=== PATIENT | male | born 1955 | race Caucasian/White ===

== ENCOUNTER 2018-08-02 14:55 | Emergency (ER) | payer OTHER ==
[2018-08-02 15:01] VITALS: BMI 36.0
--- NOTE | 2018-08-02 15:03 | PDOC ---
Rapid Medical Evaluation Chief Complaint: Pain Time Seen by Provider: 08/02/18 14:58 Medical Evaluation: 08/02/18 14:59 I have performed a brief in person evaluation of the patient. The patient presents with a CC of: "I believe I have a hernia." Pt is a 62 YO male who states "I think I have a hernia." Pt admits to nausea, no vomiting. Admits to regular BM. PE: Lungs: Clear Heart: RRR Abdomen: Pt has pain upon palpation to the epigastric area. MS: Moves all extremities without difficulty. Neuro: Alert and oriented Psych: Appropriate affect I have ordered the following: IV, CBC with diff, CMP, Type and Screen The patient will proceed to the Ed for further evaluation. Discharge Disposition - Diagnosis Hernia - Referrals Referrals: Bonifacio Pratt MD [Primary Care Provider] - - Patient Instructions - Post Discharge Activity
--- NOTE | 2018-08-02 15:07 | PDOC ---
History of Present Illness - General History Source: Patient - History of Present Illness Timing/Duration: reports: other (2 months) Abdominal Pain Onset Location: reports: epigastric <Trent Catherine - Last Filed: 08/02/18 19:06> <Imelda Walker - Last Filed: 08/02/18 19:28> - General Chief Complaint: Pain Stated Complaint: PCP SENT, ABD PAIN Time Seen by Provider: 08/02/18 14:58 Past History - Past Medical History COPD: No - Suicide/Smoking/Psychosocial Hx Smoking History: Never smoked <Trent Catherine - Last Filed: 08/02/18 19:06> <Imelda Walker - Last Filed: 08/02/18 19:28> - Past Medical History Allergies/Adverse Reactions: Allergies Allergy/AdvReac Type Severity Reaction Status Date / Time No Known Allergies Allergy Verified 08/02/18 15:01 Home Medications: Ambulatory Orders NK [No Known Home Medication] 08/02/18 Review of Systems - Review of Systems Constitutional: No: Fever, Malaise, Unexplained wgt Loss Respiratory: No: Shortness of Breath Cardiac (ROS): No: Chest Pain, Palpitations ABD/GI: Yes: Nausea. No: Blood Streaked Bowels, Constipated, Diarrhea, Vomiting , Tarry Stools : No: Dysuria, Flank Pain, Hematuria <Trent Catherine - Last Filed: 08/02/18 19:06> *Physical Exam - Vital Signs Last Vital Signs Temp Pulse Resp BP Pulse Ox 98.6 F 69 18 161/79 98 08/02/18 14:57 08/02/18 14:57 08/02/18 14:57 08/02/18 14:57 08/02/18 14:57 - Physical Exam General Appearance: Yes: Appropriately Dressed. No: Apparent Distress HEENT: positive: Normal Voice Neck: positive: Supple Respiratory/Chest: positive: Lungs Clear, Normal Breath Sounds. negative: Respiratory Distress Cardiovascular: positive: Regular Rate, S1, S2 Gastrointestinal/Abdominal: positive: Normal Bowel Sounds, Tender (sig ttp to upper mid abd, no obvious hernia), Soft. negative: Pulsatile Mass, Distended, Guarding, Rebound Musculoskeletal: negative: CVA Tenderness Integumentary: positive: Dry, Warm Neurologic: positive: Fully Oriented, Alert, Normal Mood/Affect <Trent Catherine - Last Filed: 08/02/18 19:06> - Vital Signs Last Vital Signs Temp Pulse Resp BP Pulse Ox 98.6 F 69 18 161/79 98 08/02/18 14:57 08/02/18 14:57 08/02/18 14:57 08/02/18 14:57 08/02/18 14:57 <Imelda Walker - Last Filed: 08/02/18 19:28> ED Treatment Course - LABORATORY CBC & Chemistry Diagram: 08/02/18 15:29 08/02/18 15:29 - RADIOLOGY Radiology Studies Ordered: Category Date Time Status ABDOMEN & PELVIS CT WITH CONTR [CT] Stat CT Scan 08/02/18 15:05 Ordered <Trent Catherine - Last Filed: 08/02/18 19:06> - LABORATORY CBC & Chemistry Diagram: 08/02/18 15:29 08/02/18 15:29 - ADDITIONAL ORDERS Additional order review: Laboratory Results 08/02/18 15:29 Sodium 140 Potassium 4.2 Chloride 107 Carbon Dioxide 28 Anion Gap 6 L BUN 24 H Creatinine 1.1 Creat Clearance w eGFR > 60 Random Glucose 97 Calcium 8.8 Total Bilirubin 0.2 AST 23 ALT 25 Alkaline Phosphatase 57 Total Protein 7.2 Albumin 4.0 08/02/18 15:29 RBC 4.40 MCV 92.4 MCHC 34.9 RDW 13.8 MPV 8.1 Neutrophils % 53.8 Lymphocytes % 34.9 Monocytes % 7.9 Eosinophils % 2.9 Basophils % 0.5 - Medications Given in the ED: ED Medications Discontinued Medications Generic Name Dose Route Start Last Admin Trade Name Freq PRN Reason Stop Dose Admin Morphine Sulfate 4 mg 08/02/18 15:47 08/02/18 15:54 Morphine Injection - IVPUSH 08/02/18 15:48 4 mg ONCE ONE Administration <Imelda Walker - Last Filed: 08/02/18 19:28> Medical Decision Making - Medical Decision Making 08/02/18 15:48 62 yo M, h/o spinal surgeries, L foot drop, ambulates w/ cane, appy, sent to ED for evaluation for abd pain. Pt reports mid upper abd burning pain radiating to substernal area a/w nausea x 2 months, gradually getting worse. No vomiting, change in BM, BRBPR, melena, f/c. No obvious association w/ food. No unexplained weight loss. No scope in past.Seen by Dr Pratt prior to arrival who evaluated pt today in office and is concerned about possible incarcerated hernia. Pt denies CP otherwise and no SOB or diaphoresis See exam Upper appd pain No obvious hernia, r/o gastritis/GERD, unlikely zain, pancreatitis, renal colic , ACS or dissection -pain control -IVF -labs -CT a/p 08/02/18 16:09 08/02/18 19:04 CT read as ventral hernia containing fat and mesentery, cannot ruled out incarceration. No herniating loops of bowels or SBO. Labs unremarkable. Patient signed out to HEATH Bruner at this time, pending surgery consult and admission. Made aware that Dr Wallace of surgery wrote prelim note on pt <Trent Catherine - Last Filed: 08/02/18 19:06> - Medical Decision Making The patient was seen and evaluated in conjunction with midlevel provider under my direct supervision, ancillary studies were reviewed. I agree with the plan as outlined by JUSTIN Catherine 62 YOM sent in for AP, x several months, of burning quality. PMD Dr. Pratt concern for incarcerated/strangulated hernia. VS normal, afebrile. basic lab and lytes wnl. no wbc ct. add on lactic given analgesia and IVF. reducible ventral hernia w/o signs of incarceration evident, seen by surgical team Dr. Wallace, will call back with full results. CT a/p with ventral hernia containing fat and mesentery, and fat stranding. no loops of bowel. surg cs, admit 08/02/18 19:27 <Imelda Walker - Last Filed: 08/02/18 19:28> *DC/Admit/Observation/Transfer <Trent Catherine - Last Filed: 08/02/18 19:06> <Imelda Walker - Last Filed: 08/02/18 19:28> Diagnosis at time of Disposition: Hernia - Referrals Referrals: Bonifacio Pratt MD [Primary Care Provider] - - Patient Instructions - Post Discharge Activity
--- NOTE | 2018-08-02 15:31 | CONSULT ---
Consult Consult Specialty:: Surgery Reason for Consultation:: Abdominal pain. Rule out incarcerated ventral hernia - History of Present Illness Chief Complaint: Abdominal pain History of Present Illness: 62 male sent to ED for abdominal pain States the pain has been present for 2 months on and off Worse with activity +BM today No vomiting - History Source History Provided By: Patient Limitations to Obtaining History: No Limitations - Smoking History Smoking history: Never smoked Home Medications - Allergies Allergies/Adverse Reactions: Allergies Allergy/AdvReac Type Severity Reaction Status Date / Time No Known Allergies Allergy Verified 08/02/18 15:01 Family Disease History - Family Disease History Family History: Unremarkable Review of Systems - Review of Systems Constitutional: denies: Chills, Fever Neck: reports: No Symptoms Cardiovascular: reports: No Symptoms Respiratory: reports: No Symptoms Gastrointestinal: reports: Abdominal Pain, Nausea. denies: Vomiting Neurological: reports: No Symptoms Pain Intensity: 2 Physical Exam Vital Signs: Vital Signs Temperature 98.6 F 08/02/18 14:57 Pulse Rate 69 08/02/18 14:57 Respiratory Rate 18 08/02/18 14:57 Blood Pressure 161/79 08/02/18 14:57 O2 Sat by Pulse Oximetry (%) 98 08/02/18 14:57 Constitutional: Yes: Calm, Mild Distress Cardiovascular: Yes: WNL Respiratory: Yes: Regular Gastrointestinal: Yes: Soft, Abdomen, Obese, Tenderness (Supraumbilical + Reducible hernia) Neurological: Yes: Alert, Oriented Problem List - Problems (1) Ventral hernia Code(s): K43.9 - VENTRAL HERNIA WITHOUT OBSTRUCTION OR GANGRENE Qualifiers: Obstruction and gangrene presence: without obstruction or gangrene Qualified Code(s): K43.9 - Ventral hernia without obstruction or gangrene Assessment/Plan Ventral hernia- reducible Nonemergent repair as outpatient No heavy lifting Abdominal binder
[2018-08-02] MEDS ORDERED: morphine CARPU-JECT 4 MG/1 ML DISP.SYRIN IVPUSH ONE (15:47)
[2018-08-02] MEDS ORDERED: SODIUM CHLORIDE 1,000 ML IV STA (15:47)
[2018-08-02] MEDS ORDERED: morphine SULFATE 4 MG/ML VIAL ONE (15:53)
[2018-08-02 15:55] LABS: BASO % 0.5 % (0-2.0); EOS % 2.9 % (0-4.5); HEMATOCRIT 40.6 % (35.4-49); HEMOGLOBIN 14.2 GM/dL (11.7-16.9); LYMPH % 34.9 % (8-40); MCH 32.3 pg (25.7-33.7); MCHC 34.9 g/dl (32.0-35.9); MEAN CELL VOLUME 92.4 fl (80-96); MEAN PLT VOLUME 8.1 fl (7.5-11.1); MONO % 7.9 % (3.8-10.2); NEUT % 53.8 % (42.8-82.8); PLATELET COUNT 157 K/MM3 (134-434); RDW 13.8 % (11.9-15.9); WHITE BLOOD COUNT 8.4 K/mm3 (4.0-10.0)
[2018-08-02 16:07] LABS: ALK PHOS 57 U/L (45-117); ANION GAP 6 MMOL/L (8-16); BILIRUBIN,TOTAL 0.2 mg/dL (0.2-1); BLOOD UREA NITROGEN 24 mg/dL (7-18); CALCIUM 8.8 mg/dL (8.5-10.1); CHLORIDE 107 mmol/L (98-107); CO2 28 mmol/L (21-32); CREATININE 1.1 mg/dL (0.55-1.3); GLUCOSE,RANDOM 97 mg/dL (74-106); POTASSIUM 4.2 mmol/L (3.5-5.1); SGOT/AST 23 U/L (15-37); SGPT/ALT 25 U/L (13-61); SODIUM 140 mmol/L (136-145); TOT PROT 7.2 g/dl (6.4-8.2)
[2018-08-02] MEDS ORDERED: FAMOTIDINE 20 MG/50 ML IVPB 20 MG/50 ML MG IVPB ONE ×2 (16:32→17:38)
[2018-08-02 19:57] LABS: INR 1.02 (0.83-1.09)
--- NOTE | 2018-08-02 20:11 | PDOC ---
*Physical Exam - Vital Signs Last Vital Signs Temp Pulse Resp BP Pulse Ox 97.8 F 62 20 119/62 98 08/02/18 18:40 08/02/18 18:40 08/02/18 18:40 08/02/18 18:40 08/02/18 18:40 - Physical Exam General Appearance: Yes: Appropriately Dressed Gastrointestinal/Abdominal: positive: Normal Bowel Sounds, Tender (reducible supraumbilical hernia. no upper quadrant tenderness), Soft ED Treatment Course - LABORATORY CBC & Chemistry Diagram: 08/02/18 15:29 08/02/18 15:29 - ADDITIONAL ORDERS Additional order review: Laboratory Results 08/02/18 08/02/18 08/02/18 19:37 15:29 15:29 PT with INR 12.00 INR 1.02 Sodium 140 Potassium 4.2 Chloride 107 Carbon Dioxide 28 Anion Gap 6 L BUN 24 H Creatinine 1.1 Creat Clearance w eGFR > 60 Random Glucose 97 Calcium 8.8 Total Bilirubin 0.2 AST 23 ALT 25 Alkaline Phosphatase 57 Total Protein 7.2 Albumin 4.0 Lipase Blood Type O POSITIVE Antibody Screen Negative 08/02/18 15:27 PT with INR INR Sodium Potassium Chloride Carbon Dioxide Anion Gap BUN Creatinine Creat Clearance w eGFR Random Glucose Calcium Total Bilirubin AST ALT Alkaline Phosphatase Total Protein Albumin Lipase 652 H Blood Type Antibody Screen 08/02/18 15:29 RBC 4.40 MCV 92.4 MCHC 34.9 RDW 13.8 MPV 8.1 Neutrophils % 53.8 Lymphocytes % 34.9 Monocytes % 7.9 Eosinophils % 2.9 Basophils % 0.5 - Medications Given in the ED: ED Medications Discontinued Medications Generic Name Dose Route Start Last Admin Trade Name Arielq PRN Reason Stop Dose Admin Sodium Chloride 1,000 mls @ 1,000 mls/hr 08/02/18 15:47 08/02/18 15:59 Normal Saline - IV 08/02/18 16:46 1,000 mls/hr ASDIR STA Administration Famotidine/Sodium Chloride 20 mg in 50 mls @ 100 mls/hr 08/02/18 16:32 17:46 Pepcid 20 Mg Premixed Ivpb - IVPB 08/02/18 17:01 100 mls/hr ONCE ONE Administration Morphine Sulfate 4 mg 08/02/18 15:47 08/02/18 15:54 Morphine Injection - IVPUSH 08/02/18 15:48 4 mg ONCE ONE Administration Medical Decision Making - Medical Decision Making 08/02/18 20:[address] Carrillo notes. patient evaluated by surgeon in the ED. recommends outpatient follow up for supraumbilical hernia. I spoke to Dr. Bonifacio bansal. patient to follow up in office in 2 days. i reviewed strict return precautions. *DC/Admit/Observation/Transfer Diagnosis at time of Disposition: Hernia, Serum lipase elevation Ventral hernia Qualifiers: Obstruction and gangrene presence: without obstruction or gangrene Qualified Code(s): K43.9 - Ventral hernia without obstruction or gangrene - Discharge Dispostion Disposition: HOME - Referrals Referrals: Bonifacio Bansal MD [Primary Care Provider] - 2 Days (see Dr. Bansal in the office on ) Jeff Wallace MD [Staff Physician] - Call tomorrow - Patient Instructions Printed Discharge Instructions: Ventral Hernia Additional Instructions: please follow up with Dr. bansal. return immediately to the ER if you have severe abdominal pain, nausea, vomiting , fever or worsening symptoms. - Post Discharge Activity Forms/Work/School Notes: Back to Work
[2018-08-02 20:35] VITALS: BP 116/64; PULSE 84; TEMP 98.2
--- NOTE | 2018-08-04 11:12 | EKG ---
Test Reason : Blood Pressure : / mmHG Vent. Rate : 059 BPM Atrial Rate : 059 BPM P-R Int : 160 ms QRS Dur : 094 ms QT Int : 416 ms P-R-T Axes : 056 011 038 degrees QTc Int : 411 ms POOR DATA QUALITY, INTERPRETATION MAY BE ADVERSELY AFFECTED SINUS BRADYCARDIA OTHERWISE NORMAL ECG NO PREVIOUS ECGS AVAILABLE Confirmed by SWETA VAN MD ([id number]) on 08/04/2018 11:12:14 AM Referred By: Confirmed By:SWETA VAN MD
== END 2018-08-02 20:36 | disposition home or self-care (01) ==
LOC: JER 14:55
PROC: 3E0337Z Introduction of Electrolytic and Water Balance Substance into Peripheral Vein, Percutaneous Approach (ICD-10-PCS; principal; 2018-08-02)
PROC: 3E033GC Introduction of Other Therapeutic Substance into Peripheral Vein, Percutaneous Approach (ICD-10-PCS; 2018-08-02)
PROC: 3E033NZ Introduction of Analgesics, Hypnotics, Sedatives into Peripheral Vein, Percutaneous Approach (ICD-10-PCS; 2018-08-02)
DX: K43.9 Ventral hernia without obstruction or gangrene (principal)
CPT/HCPCS: 36415; 74177-TC; 80053; 83690; 85025; 85610; 86850; 86900; 86901; 93005; 93010; 96361; 96365; 96375; 99283-25; J7030